=== PATIENT | male | born 1980 | race Hispanic/Latino ===

== ENCOUNTER 2017-02-25 09:28 | Emergency (ER) | payer BC ==
[2017-02-25 09:31] VITALS: BMI 26.9
--- NOTE | 2017-02-25 09:45 | ED PDOC ---
Arrival/HPI - General Chief Complaint: Male Genitourinary Time Seen by Provider: 02/25/17 09:35 Historian: Patient - History of Present Illness Narrative History of Present Illness (Text): 02/25/17 09:42 36 y/o male, pmh including rt. kidney reconstructive surgery with chronic hematuria/severe hydronephrosis and multiple stone/renal stone, nkda, c/o lt. flank pain with urinary frequency started this morning. Sharp pain, lt. flank to the lt. lower abdomen region, no hematuria, no dysuria, no chest pain or shortness of breath, feels nauseous from the pain, no night sweat, no vomiting, no abdominal pain, no diarrhea, no rash, no other medical or psychological complaints. Past Medical History - Provider Review Nursing Documentation Reviewed: Yes - Renal Hx Renal Disorder: Yes Hx Kidney Stones: Yes Other/Comment: Right Kidney reconstruction - Psychiatric Hx Substance Use: No - Surgical History Other/Comment: Right Kidney Reconstruction 30 years ago Family/Social History - Physician Review Nursing Documentation Reviewed: Yes Family/Social History: Unknown Family HX Smoking Status: Never Smoked Hx Alcohol Use: Yes Frequency of alcohol use: Socially Hx Substance Use: No Allergies/Home Meds Allergies/Adverse Reactions: Allergies No Known Allergies Allergy (Verified 02/25/17 09:31) Review of Systems - Review of Systems Constitutional: absent: Fatigue, Fevers Eyes: absent: Vision Changes ENT: absent: Hearing Changes Respiratory: absent: Cough, Wheezing Cardiovascular: absent: Chest Pain Gastrointestinal: absent: Abdominal Pain, Nausea, Vomiting Genitourinary Male: Frequency Musculoskeletal: Back Pain. absent: Arthralgias, Neck Pain Skin: absent: Rash, Pruritis, Skin Lesions, Laceration, Abscess, Ulcer, Cellulitis Neurological: absent: Headache, Focal Weakness, Gait Changes, Facial Droop, Disequilibrium, Seizure Physical Exam Vital Signs Reviewed: Yes Vital Signs Temp Pulse Resp BP Pulse Ox 02/25/17 12:17 69 18 148/86 97 02/25/17 09:29 98.2 F 75 16 154/99 H 97 Temperature: Afebrile Blood Pressure: Hypertensive Pulse: Regular Respiratory Rate: Normal Appearance: Positive for: Well-Appearing, Non-Toxic, Comfortable Pain Distress: Severe Mental Status: Positive for: Alert and Oriented X 3 - Systems Exam Head: Present: Atraumatic, Normocephalic Pupils: Present: PERRL Extroacular Muscles: Present: EOMI Conjunctiva: Present: Normal Mouth: Present: Moist Mucous Membranes Neck: Present: Normal Range of Motion Respiratory/Chest: Present: Clear to Auscultation, Good Air Exchange. No: Respiratory Distress, Accessory Muscle Use Cardiovascular: Present: Regular Rate and Rhythm, Normal S1, S2. No: Murmurs Abdomen: Present: Normal Bowel Sounds. No: Tenderness, Distention, Peritoneal Signs, Rebound, Guarding Back: Present: Normal Inspection, CVA Tenderness (+lt. cva tenderness). No: Midline Tenderness, Paraspinal Tenderness, Pain with Leg Raise, Decubitus Ulcer Upper Extremity: Present: Normal Inspection. No: Cyanosis, Edema Lower Extremity: Present: Normal Inspection. No: Edema Neurological: Present: GCS=15, CN II-XII Intact, Speech Normal Skin: Present: Warm, Dry, Normal Color. No: Rashes Psychiatric: Present: Alert, Oriented x 3, Normal Insight, Normal Concentration Medical Decision Making ED Course and Treatment: 02/25/17 09:50 -labs/ua -CT abdomen and pelvis -IVF/zofran/morphine -observe and reassess 02/25/17 11:05 -Labs are non-significant except UA show +hematuria with no UTI. 02/25/17 12:52 -CT show 2mm stone with no pylonephritis. I discussed the entire CT result with the patient including the rt. kidney which he stated that he is currently following up with Dr. Sanz. -Pain controlled with the IVF/toradol, flomax and strainer ordered. I will put the patient on the antibiotic as there is hematuria with the stone as this will have chance of developing infection, pt. agreed on the this plan of care. -Pt. stated that he will follow up with dr. sanz today or tomorrow along to reviewed the CT scan with Dr. Sanz as well. -Discharge home with keflex, percocet, flomax, strainer, stay hydrated, bed rest , follow up with your own pmd and Dr. Sanz within 1-2 days, return to the ER for any new or worsening signs or symptoms. - Lab Interpretations Lab Results: 02/25/17 10:00 02/25/17 10:00 Lab Results 02/25/17 10:00: WBC 4.7, RBC 5.18, Hgb 17.2, Hct 46.5, MCV 89.8, MCH 33.2, MCHC 37.0, RDW 11.7, Plt Count 150, MPV 8.9, Gran % 72.9 H, Lymph % (Auto) 22.6, [place] % (Auto) 3.7, Eos % (Auto) 0.6 L, Baso % (Auto) 0.2, Gran # 3.39, Lymph # 1.1 L, [place] # 0.2, Eos # 0.0, Baso # 0.01, Sodium 142, Potassium 4.2, Chloride 103, Carbon Dioxide 26, Anion Gap 17, BUN 21, Creatinine 1.0, Est GFR ( Amer) > 60, Est GFR (Non-Af Amer) > 60, Random Glucose 143 H, Calcium 9.8, Total Bilirubin 1.1, AST 20, ALT 21, Alkaline Phosphatase 61, Total Protein 7.7 , Albumin 4.5, Globulin 3.1, Albumin/Globulin Ratio 1.5, Lipase 77, Urine Color Yellow, Urine Appearance Sl cloudy, Urine pH 6.0, Ur Specific [place] 1.025, Urine Protein 30 H, Urine Glucose (UA) Negative, Urine Ketones Negative, Urine Blood Large H, Urine Nitrate Negative, Urine Bilirubin Negative, Urine Urobilinogen 0.2, Ur Leukocyte Esterase Negative, Urine RBC Tntc, Urine WBC 0 - 2 I have reviewed the lab results: Yes Interpretation: Abnormal lab values (+hematuria) - RAD Interpretation Radiology Orders: 02/25/17 09:46 ABD PELVIS PO & IV CONTRAST [CT] Stat PROCEDURE: CT Abdomen and Pelvis with contrast HISTORY: Left flank pain and CVA tenderness COMPARISON: None. TECHNIQUE: CT scan of the abdomen and pelvis was performed after administration of intravenous contrast. Oral contrast was not administered. Coronal and sagittal reformatted images were obtained. Radiation dose: Total exam DLP = 1456.70 mGy-cm. FINDINGS: LOWER THORAX: The right lung base is clear. There is left basilar atelectasis. LIVER: The liver is normal in size and there is homogeneous enhancement. GALLBLADDER AND BILE DUCTS: There are no calcified gallstones. PANCREAS: The pancreas is normal in size and there is homogeneous enhancement without focal mass or ductal dilatation. SPLEEN: There is mild splenomegaly. ADRENALS: Both adrenal glands are normal without discrete nodule. KIDNEYS AND URETERS: Right kidney: There is severe right hydronephrosis. There are nonobstructing stones in the right kidney, the largest in the right lower pole measures 15 mm. There is a cortical scar in the lower pole and dysmorphic calcification in the right lower pole cortex. There are small cortical cysts. The right ureteral is not dilated. Left kidney: The left kidney is normal in size. There is mild perinephric fat stranding, mild hydronephrosis and mild diffuse dilatation of the ureteral with a 2 mm stone in the distal ureter proximal to the UV junction. VASCULATURE: Normal. No aortic aneurysm. BOWEL: The small bowel loops are normal in caliber. The colon is unremarkable. There is no evidence of bowel dilatation or obstruction. APPENDIX: No inflammatory changes in the right lower quadrant. PERITONEUM: No free fluid. No free air. LYMPH NODES: No enlarged lymph nodes. BLADDER: Decompressed. REPRODUCTIVE: Unremarkable. BONES: No acute fracture. Within normal limits for the patient's age. OTHER FINDINGS: None. IMPRESSION: 1. Findings are consistent with recent passage of a 2 mm left ureteral stone which is now identified in the distal ureteral proximal to the UV junction, with resultant mild left hydronephrosis, hydroureter and perinephric fat stranding. No left nephrolithiasis. 2. Multiple nonobstructing stones in the right kidney, the largest in the lower pole measures 15 mm. Severe right hydronephrosis. No evidence of obstructing ureteral stone or ureteral dilatation. 3. No evidence of pyelonephritis. 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 - Medication Orders Current Medication Orders: Sodium Chloride (Sodium Chloride 0.9%) 1,000 mls @ 500 mls/hr IV .Q2H [facility] Last Admin: 02/25/17 11:00 Dose: 500 MLS/HR eMAR Start Stop Document 02/25/17 11:00 SZA (Rec: 02/25/17 12:06 SZA [id number]) Intravenous Solution Start Date 02/25/17 Start Time 11:00 Discontinued Medications Sodium Chloride (Sodium Chloride 0.9%) 1,000 mls @ 999 mls/hr IV .Q1H1M STA Stop: 02/25/17 10:46 Last Admin: 02/25/17 10:00 Dose: 999 MLS/HR eMAR Start Stop Document 02/25/17 10:00 NUT GRADER (Rec: 02/25/17 10:04 [id number] Intravenous Solution Start Date 02/25/17 Start Time 10:04 End Date 02/25/17 End time 11:04 Total Infusion Time 60 Iohexol (Omnipaque 240 (50 Ml)) Confirm Administered Dose 50 ml .ROUTE .STK-MED ONE Stop: 02/25/17 09:54 Iohexol (Omnipaque 350 100 Ml) Confirm Administered Dose 350 mg .ROUTE .STK-MED ONE Stop: 02/25/17 10:54 Ketorolac Tromethamine (Toradol) 30 mg IVP STAT STA Stop: 02/25/17 11:00 Last Admin: 02/25/17 11:09 Dose: 30 MG IVP Administration Document 02/25/17 11:09 GLENDY (Rec: 02/25/17 11:09 [id number] Charges for Administration # of IVP Administrations 1 Morphine Sulfate (Morphine) 4 mg IVP STAT STA Stop: 02/25/17 09:47 Last Admin: 02/25/17 10:04 Dose: 4 MG [facility] Pain Assessment Document 02/25/17 10:04 [facility] (Rec: 02/25/17 10:04 [id number] Pain Reassessment Is this a pain reassessment? 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 Disposition/Present on Arrival - Present on Arrival Any Indicators Present on Arrival: No History of DVT/PE: No History of Uncontrolled Diabetes: No Urinary Catheter: No History of Decub. Ulcer: No History Surgical Site Infection Following: None - Disposition Have Diagnosis and Disposition been Completed?: Yes Diagnosis: Ureter colic Disposition: HOME/ ROUTINE Disposition Time: 12:55 Patient Plan: Discharge Condition: IMPROVED Additional Instructions: Discharge home with keflex, percocet, flomax, strainer, stay hydrated, bed rest , follow up with your own pmd and Dr. Sanz within 1-2 days, return to the ER for any new or worsening signs or symptoms. Prescriptions: Tamsulosin [Flomax] 0.4 mg PO DAILY #7 cap Cephalexin [cephalexin] 500 mg PO QID #28 cap oxyCODONE/Acetaminophen [Percocet 5/325 mg Tab] 1 tab PO QID PRN #8 tab PRN Reason: Other Referrals: PCP,NO [Primary Care Provider] - Follow up with primary Ayden Sanz MD [Staff Provider] - Follow up with primary Forms: WORK NOTE
[2017-02-25] MEDS ORDERED: Morphine 4 mg/ml ISec IVP STA (09:46)
[2017-02-25] MEDS ORDERED: Sodium Chloride 0.9% 1,000 ML IV STA (09:46)
[2017-02-25] MEDS ORDERED: Iohexol 240 (50 ml) ONE (09:53)
[2017-02-25 10:11] LABS: ADD MANUAL DIFF? NO
[2017-02-25 10:18] LABS: BASO # 0.01 K/mm3 (0.0-2.0); BASO % 0.2 % (0.0-3.0); EOS % 0.6 % (1.5-5.0); GRAN # 3.39 (1.4-6.5); GRAN % 72.9 % (50.0-68.0); HEMATOCRIT 46.5 % (42.0-52.0); LYMPH # 1.1 (1.2-3.4); LYMPH % 22.6 % (22.0-35.0); MEAN CELL VOLUME 89.8 fL (80.0-105.0); MEAN CORPUSCULAR HEMOGLOBIN 33.2 pg (25.0-35.0); MEAN PLATELET VOLUME 8.9 fl (7.0-11.0); MONO # 0.2 (0.1-0.6); MONO % 3.7 % (1.0-6.0); PLATELET COUNT 150 10^3/uL (120.0-450.0); RED CELL DISTRIBUTION WIDTH 11.7 % (11.5-14.5); WHITE BLOOD COUNT 4.7 10^3/ul (4.5-11.0)
[2017-02-25 10:20] LABS: URINE BILIRUBIN NEGATIVE (NEGATIVE); URINE BLOOD LARGE (NEGATIVE); URINE GLUCOSE (UA) NEGATIVE (NEGATIVE); URINE KETONE NEGATIVE (NEGATIVE); URINE LEUKOCYTE ESTERASE NEGATIVE Leu/uL (NEGATIVE); URINE PROTEIN 30 mg/dL (<30 mg/dL); URINE UROBILINOGEN 0.2 E.U./dL (<1 E.U./dL)
[2017-02-25 10:22] LABS: ALB/GLOB RATIO 1.5 (1.1-1.8); ALKALINE PHOSPHATASE 61 U/L (38-133); ALT/SGPT 21 U/L (7-56); AST/SGOT 20 U/L (15-59); BILIRUBIN,TOTAL 1.1 mg/dL (0.2-1.3); BLOOD UREA NITROGEN 21 mg/dL (7-21); CALCIUM 9.8 mg/dL (8.4-10.5); CARBON DIOXIDE 26 mmol/L (21-33); CHLORIDE 103 mmol/L (98-107); GFR AFRICAN-AMERICAN > 60; GLUCOSE,RANDOM 143 mg/dL (70-110); LIPASE 77 U/L (23-300); POTASSIUM 4.2 mmol/L (3.6-5.0); SODIUM 142 mmol/L (132-148); TOTAL PROTEIN 7.7 g/dL (5.8-8.3); URINE APPEARANCE SL CLOUDY (CLEAR); URINE COLOR YELLOW (YELLOW)
[2017-02-25 10:27] LABS: URINE RBC TNTC /hpf (0-2); URINE WBC 0 - 2 /hpf (0-6)
[2017-02-25] MEDS ORDERED: Sodium Chloride 0.9% 1,000 ML IV SCH (10:30)
[2017-02-25] MEDS ORDERED: Iohexol 350 MG/100 ML VIAL ONE (10:53)
[2017-02-25 12:17] VITALS: RESP 18
--- NOTE | 2017-02-25 12:41 | CT ---
PROCEDURE: CT Abdomen and Pelvis with contrast HISTORY: Left flank pain and CVA tenderness COMPARISON: None. TECHNIQUE: CT scan of the abdomen and pelvis was performed after administration of intravenous contrast. Oral contrast was not administered. Coronal and sagittal reformatted images were obtained. Radiation dose: Total exam DLP = 1456.70 mGy-cm. FINDINGS: LOWER THORAX: The right lung base is clear. There is left basilar atelectasis. LIVER: The liver is normal in size and there is homogeneous enhancement. GALLBLADDER AND BILE DUCTS: There are no calcified gallstones. PANCREAS: The pancreas is normal in size and there is homogeneous enhancement without focal mass or ductal dilatation. SPLEEN: There is mild splenomegaly. ADRENALS: Both adrenal glands are normal without discrete nodule. KIDNEYS AND URETERS: Right kidney: There is severe right hydronephrosis. There are nonobstructing stones in the right kidney, the largest in the right lower pole measures 15 mm. There is a cortical scar in the lower pole and dysmorphic calcification in the right lower pole cortex. There are small cortical cysts. The right ureteral is not dilated. Left kidney: The left kidney is normal in size. There is mild perinephric fat stranding, mild hydronephrosis and mild diffuse dilatation of the ureteral with a 2 mm stone in the distal ureter proximal to the UV junction. VASCULATURE: Normal. No aortic aneurysm. BOWEL: The small bowel loops are normal in caliber. The colon is unremarkable. There is no evidence of bowel dilatation or obstruction. APPENDIX: No inflammatory changes in the right lower quadrant. PERITONEUM: No free fluid. No free air. LYMPH NODES: No enlarged lymph nodes. BLADDER: Decompressed. REPRODUCTIVE: Unremarkable. BONES: No acute fracture. Within normal limits for the patient's age. OTHER FINDINGS: None. IMPRESSION: 1. Findings are consistent with recent passage of a 2 mm left ureteral stone which is now identified in the distal ureteral proximal to the UV junction, with resultant mild left hydronephrosis, hydroureter and perinephric fat stranding. No left nephrolithiasis. 2. Multiple nonobstructing stones in the right kidney, the largest in the lower pole measures 15 mm. Severe right hydronephrosis. No evidence of obstructing ureteral stone or ureteral dilatation. 3. No evidence of pyelonephritis.
[2017-02-25] MEDS ORDERED: Sodium Chloride 0.9% 500 ML IV STA (12:51)
[2017-02-25 14:05] VITALS: BP 142/80; PULSE 88; TEMP 98.7; O2SAT 99
== END 2017-02-25 14:05 | disposition home or self-care (01) ==
LOC: ED 09:28
DX: N20.1 Calculus of ureter (principal)
CPT/HCPCS: 74177; 80053; 81001; 83690; 85025; 96361; 96374; 96375; 99285; J1885; J2270; J2405; J7040; Q9966; Q9967